=== PATIENT | female | born 1985 | race African-American/Black ===

== ENCOUNTER 2021-03-02 13:50 | Emergency (ER) | payer SELFPAY ==
[~2021-03-02] VITALS: Ht 157.5 cm; Wt 76.2 kg
--- NOTE | 2021-03-02 14:00 | NUR ---
alcohol withdrawal, shaking, last intake 2 days ago. Patient a/ox4, breathing even and unlabored, no sob noted, needs attended. Ambulatory with steady gait.
--- NOTE | 2021-03-02 16:26 | NUR ---
urine sample sent to lab
[2021-03-02] MEDS ORDERED: LORAZEPAM 1 MG TABLET ONE (16:47)
[2021-03-02] MEDS: LORAZEPAM 1 MG TABLET PO ONE (16:51)
[2021-03-02 17:24] LABS: BILIRUBIN,URINE Negative (NEGATIVE); COLOR,URINE YELLOW (YELLOW); LEUKOCYTE ESTERASE ,URINE Negative (NEGATIVE); NITRITE, URINE Negative (NEGATIVE); PROTEIN,URINE Negative (NEGATIVE); UGLUCOSE Negative (NEGATIVE); UROBILINOGEN,URINE 0.2 EU/dL (0.2)
[2021-03-02 17:25] LABS: BACTERIA,URINE Rare /HPF (None Seen); SQUAMOUS EPITHELIAL CELL,UR Few /HPF (None Seen); WBC,URINE NONE SEEN /HPF (0-3)
[2021-03-02] MEDS ORDERED: diphenhydrAMINE HCL 25 MG CAPSULE ONE (18:20)
[2021-03-02] MEDS ORDERED: AZITHROMYCIN 250 MG TABLET ONE (18:20)
[2021-03-02] MEDS ORDERED: ACETAMINOPHEN 325 MG TABLET ONE (18:20)
[2021-03-02] MEDS ORDERED: CEFTRIAXONE 500 MG VIAL ONE (18:20)
[2021-03-02] MEDS ORDERED: LIDOCAINE /MPF 1% VIAL 5 ML VIAL ONE (18:20)
[2021-03-02] MEDS ORDERED: METOCLOPRAMIDE HCL 10 MG TABLET ONE (18:21)
[2021-03-02] MEDS ORDERED: LORAZEPAM INJ 2 MG/ML VIAL ONE (18:22)
[2021-03-02] MEDS ORDERED: CHLO25CA22 PO (18:45)
[2021-03-02] MEDS ORDERED: KETOROLAC TROMETHAMINE 15 MG/ML VIAL ONE (18:45)
[2021-03-02] MEDS: LORAZEPAM INJ 2 MG/ML VIAL IM ONE (18:55)
[2021-03-02] MEDS: CEFTRIAXONE 500 MG VIAL IM ONE (18:55)
[2021-03-02] MEDS: METOCLOPRAMIDE HCL 10 MG TABLET PO ONE (18:56)
[2021-03-02] MEDS: AZITHROMYCIN 250 MG TABLET PO ONE (18:56)
[2021-03-02] MEDS: ACETAMINOPHEN 325 MG TABLET PO ONE (18:56)
[2021-03-02] MEDS: KETOROLAC TROMETHAMINE INJ 30 MG/ML VIAL IM ONE (18:56)
[2021-03-02] MEDS: DIPHENHYDRAMINE HCL 12.5 MG/5 ML UDC PO ONE (19:00)
--- NOTE | 2021-03-02 19:04 | NUR ---
Patient discharged to home in stable condition. Written and verbal after care instructions given. Patient verbalizes understanding of instruction.
[2021-03-02 19:05] VITALS: BP 128/87
== END 2021-03-02 19:05 | disposition home or self-care (01) ==
LOC: ER 14:00
DX: F10.239 Alcohol dependence with withdrawal, unspecified (principal); N72 Inflammatory disease of cervix uteri; Z79.899 Other long term (current) drug therapy; Y90.9 Presence of alcohol in blood, level not specified
CPT/HCPCS: 80307; 81001; 84703; 87491; 87591; 96372 ×2; 99284; J0696; J1885; J2060; J3490; J8597; Q0163 ×2